=== PATIENT | female | born 1975 | race Two or more races ===

== ENCOUNTER 2018-12-07 18:06 | Emergency (ER) | payer SELFPAY ==
[~2018-12-07] VITALS: Ht 157.5 cm; Wt 59.0 kg
[2018-12-07 18:54] VITALS: BP 118/73
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
== END 2018-12-07 19:56 | disposition home or self-care (01) ==
LOC: ER 18:06
DX: R51 Headache (principal); G89.11 Acute pain due to trauma; V43.52XA Car driver injured in collision with other type car in traffic accident, initial encounter; Y93.89 Activity, other specified; Y92.488 Other paved roadways as the place of occurrence of the external cause; Y99.8 Other external cause status
CPT/HCPCS: 70450; 99284